=== PATIENT | female | born 2000 | race Caucasian/White ===

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

== ENCOUNTER 2023-12-22 08:58 | Outpatient (REF) | payer OTHER, SELFPAY ==
--- NOTE | ~2023-12-22 | XR_ITS ---
EXAMINATION: XR FOOT, RIGHT CLINICAL INFORMATION: Pain in unspecified foot, attention great toe. COMPARISON: None available. TECHNIQUE: AP, lateral, and oblique views of the right foot. Additional view of the great toe. Radiopaque marker placed by technologist to indicate the area of concern as indicated by the patient along the great toe FINDINGS: Bone mineralization is normal. Joint spaces are preserved. No displaced fracture of the great toe appreciated. Sclerotic focus overlying the base of the fifth metatarsal, possibly representing a bone island. XR/XR foot RT min 3V IMPRESSION: 1. No displaced fracture of the great toe appreciated. 2. Sclerotic focus overlying the base of the fifth metatarsal, possibly representing a bone island. 3. Recommend follow up imaging in 10-14 days if fracture is suspected.
== END 2023-12-22 08:59 | disposition home or self-care (01) ==
LOC: HO.HOSX 08:58
PROVIDERS: Visit Provider Orthopaedic Surgery
DX: M79.671 Pain in right foot (principal)
CPT/HCPCS: 73630

== ENCOUNTER 2023-12-22 12:23 | Outpatient (AMB) | payer OTHER, SELFPAY ==
--- NOTE | 2023-12-22 12:47 | A.OFFVIS_ITS ---
<Statement entered by Manny Andrade MD - 12/25/23 06:49> I saw and evaluated this patient. I completed the assessment and plan in its entirety. The patient visit totaled 25 min, 15 of which I spent directly counseling the patient. I agree with PA assessment and plan. I discussed the risks benefits and alternatives including but not limited to the risk of pain, infection, stiffness, need for further surgery. Intake Visit Reasons: N/P RT great toe smashed approx 01 Intake Note: Sarah a 23 year old female who presents today as a new patient for an evaluation of right great toe, ~11/13/23. HPI HPI N/P RT great toe smashed approx 01: Details: Patient is a 23-year-old female who presents for evaluation of right great toe. Patient reports that, while scuba diving, a diving weight was dropped on her foot pain, but she continued to dive. Patient reports that there is was a significant subungual hematoma in that nail, and that for the past couple of days there has been some purulent discharge from under the nail. Patient also reports increased erythema and edema of the right great toe. Patient reports that her pain has improved significantly since time of injury, and that the subungual hematoma has since spontaneously evacuated. Review of Systems Const All systems reviewed & are unremarkable except as noted in HPI and below Physical Exam Const Other: Patient is alert, oriented, cooperative, and in no acute distress HEENT Head: Yes normocephalic and Yes atraumatic Resp Effort & Inspection: normal respiratory effort and able to speak in complete sentences Cardio Jugular venous distension: no JVD Neuro General: gait normal Cognition (Neuro): normal cognition Extrem Other: On inspection, patient's right great toe is slightly edematous, and erythematous. Right great toenail is noted to be lifted off of the skin, with evacuated subungual hematoma. No discharge noted at this time. Patient tender to palpation of the volar aspect of the right great toe. Patient is able to flex and extend the toe. No antalgic gait noted. Psych Appearance: grossly normal Mental Status: mental status grossly normal Results Reviewed Results Reviewed: X-rays obtained in the office today and independently reviewed by me, Juventino Meyer PA-C, demonstrate nondisplaced fracture of the tip of the distal phalanx of the right great toe. Assessment & Plan Assessment & Plan (1) Fracture of distal phalanx of right great toe: Code(s): S92.421A - Displaced fracture of distal phalanx of right great toe, initial encounter for closed fracture Category: Medical Qualifiers: Encounter type: initial encounter Fracture alignment: nondisplaced Fracture type: open Qualified Code(s): S92.424B - Nondisplaced fracture of distal phalanx of right great toe, initial encounter for open fracture Plan 1. Distal phalanx fracture at the tuft, right great toe Due to bleeding and purulent drainage in the setting of a distal phalanx great toe fracture, infection of an open fracture must be considered. Patient is walking well, and is wearing normal shoes at this time Patient prescribed a 10 day course of Augmentin to treat potential infection. Due to mild symptom load, postop shoe or walking boot not necessary in this patient. Patient can follow-up in clinic with me in 1 month for repeat evaluation of fracture site, sooner with any acute concerns. Addendum on 12/23/2023: After discussion with Dr. Andrade, who was decided that the patient has had proceed with right great toe I and D, nail bed removal, and culture. Patient is amenable to this plan Orders: Orders XR foot RT min 3V 12/22/23 M79.673 - Pain in unspecified foot Medications: New amoxicillin-pot clavulanate 875-125 mg 1 tab PO BID 20 tabs 0RF 10 days Coding Level of Care Code New Pt Level 3 (92190) Diagnoses Open nondisplaced fracture of distal phalanx of right great toe, initial encounter S92.424B Encounter type: initial encounter Fracture alignment: nondisplaced Fracture type: open
== END 2023-12-22 15:46 | disposition home or self-care (01) ==
PROVIDERS: Visit Provider Orthopaedic Surgery
DX: S92.424B Nondisplaced fracture of distal phalanx of right great toe, initial encounter for open fracture (principal)
CPT/HCPCS: 99204

== ENCOUNTER 2023-12-23 13:49 | Outpatient (REF) | payer OTHER, SELFPAY ==
[2023-12-23 13:58] VITALS: BP 118/74; PULSE 74; RESP 18; TEMP 36.7; O2SAT 99; BMI 24.8
--- NOTE | 2024-02-11 08:46 | P.OP_ITS ---
Operative Note Operative Note Date of Service: 12/23/23 Narrative: Date of Service: 12/23/23 Pre-op diagnosis: Right great toe subungal infected hematoma Post-op diagnosis: same Procedure: Nail removal right great toe Surgeon: Manny Andrade MD Anesthesia: local Was an Education Adviser used for this Procedure?: No Estimated blood loss (mL): 1 Pathology: other Condition: stable Disposition: PACU Patient was brought to the procedure room and she was seated on the operative table. She was prepped and draped in standard sterile fashion and a time out was called to identify proper site, proper procedure. IV antibiotics were held. I began by injecting a combination of 0.5% plain bupivacaine and 1% lidocaine around the distal and proximal phalanx of the great toe. Plantar and dorsal injections were performed circumferentially until she was subjectively anesthetized over the distal phalanx and the nail bed. Once appropriate anesthesia was achieved I used a Whitethorn elevator to gently undermine the nail. This was done so methodically until I was able to remove the nail completely w ithout difficulty. The germinal matrix was not damaged. There was the expression of purulence from a small hole in the nail bed. This was cultured. I then irrigated copiously and wrapped the toe circumferentially and sterile dressing and padding. There were no complications and the patient was alert awake and alert throughout the entire procedure.
== END 2023-12-23 13:50 | disposition home or self-care (01) ==
LOC: HO.MS 13:49
PROVIDERS: Visit Provider Orthopaedic Surgery
PROC: (CPT 11750; principal; 2023-12-23 14:00)
DX: L03.031 Cellulitis of right toe (principal); S90.111A Contusion of right great toe without damage to nail, initial encounter; X58.XXXA Exposure to other specified factors, initial encounter; Y93.9 Activity, unspecified; Y92.9 Unspecified place or not applicable; Y99.9 Unspecified external cause status
CPT/HCPCS: 11750; 87070; 87077; 87147; 87186; 87205; J2795

== ENCOUNTER → 2023-12-23 13:49 | Outpatient (BNV) | payer OTHER, SELFPAY | PROVIDERS: Visit Provider Orthopaedic Surgery | DX: L60.3 Nail dystrophy (principal) | CPT/HCPCS: 11750 ==

== ENCOUNTER 2024-01-05 11:16 | Outpatient (AMB) | payer OTHER, SELFPAY ==
[2024-01-05 11:56] VITALS: BP 122/66; PULSE 70; TEMP 36.6; O2SAT 98
--- NOTE | 2024-01-05 11:56 | AM.OFFWIN_ITS ---
Intake Vital Signs 01/05/24 11:56 Height 5 ft 3 in BP 122/66 Blood Pressure Location Lt brachial Position Sitting Pulse 70 Pulse Source Pulse Oximeter Temp 97.9 F Temp Source Oral Pulse Oximetry (%) 98 Intake Visit Reasons: EP headaches, lump on back of head Intake Note: patient is here for headaches, lump on back of head Patient Tobacco Use Status: Never used Tobacco Allergies No Known Allergies Allergy (Verified 01/05/24 11:56) Do you need a note to return to daycare/school/sports/work: Yes HPI HPI Comments History of Present Illness Details This is a 23-year-old female with a past medical history of Lyme disease two years ago and a recent foot infection presenting for evaluation of a painful lesion on the back of her scalp that has been present for the past 5 days. Patient comes to urgent care today because she noted lymph nodes on the back of her neck this morning and also had headache. Patient states she was taking Keflex for the past 10 days for her foot infection on her last dose was last night. The antibiotic therapy has now been completed. Patient denies having any visual changes, neck pain, fevers, chills or trauma to her head. Patient did not take any medication for treatment of her headache and states that her headache has resolved at this time. [facility] Social History Patient Tobacco Use Status: Never used Tobacco Review of Systems Const All systems reviewed & are unremarkable except as noted in HPI and below Denies body aches, Denies chills, Denies fatigue, Denies fever(s) and Reports headache(s) Eyes Reports no additional complaints, Denies blurry vision, Denies change in vision and Denies loss of vision ENT Reports no additional complaints, Denies dizziness and Reports headache(s) Card Reports as per HPI and Denies syncope Resp Reports no additional complaints Skin/Breast Details: bump on back of head Reports system reviewed and no additional complaints, except as documented Neuro Reports no additional complaints, Denies dizziness, Denies syncope, Reports headache(s), Denies loss of vision and Denies paresthesias Psych Reports no additional complaints Endo Denies fatigue Valeriano/Lymph Reports no additional complaints Aller/Immun Reports no additional complaints Physical Exam Vital Signs: Last Vital Signs Temp 97.9 F 01/05/24 11:56 Pulse 70 01/05/24 11:56 BP 122/66 01/05/24 11:56 Pulse Ox 98 01/05/24 11:56 Const General: cooperative, healthy appearing, comfortable, no acute distress, well developed, alert and awake Nutritional Appearance: average body habitus Orientation/consciousness: patient oriented x3 Limitations: no limitations HEENT Other: no erythema, edema or cutaneous findings on the posterior scalp at the site of pain described by patient Head: Yes normal to inspection, No hematoma, No occipital foramen tenderness, No scalp lesion, Yes scalp tenderness (right posterior parietal region) and No Temporal artery tenderness present Ears: hearing grossly normal bilaterally, external ears normal, TM's normal bilaterally and EAC's normal General nose exam: Normal external nose present Face and sinus: Yes normal facial exam Mouth: Normal oral and palatal mucosa present Eyes General: appearance normal, both eyes and all related structures Visual Martínez: normal visual martínez by confrontation Alignment and Position: alignment normal Periorbital: periorbital findings normal Eyelids: Yes eyelids normal Conjunctivae: conjunctivae normal Sclerae: sclerae normal Corneas: corneas normal Pupils: Equal, round and reactive pupils present EOM: EOMs intact bilaterally Direct Ophthalmoscopy: normal light reflex and no photophobia Neck Neck: Yes no meningeal signs Lymphatic: lymphadenopathy right posterior cervical Neuro General: patient oriented x3, moves all extremities, Normal light touch and pain sensation, no meningeal signs, no focal motor deficits and CN's II-XI intact bilaterally Cranial nerves: Yes CN's II-XII intact bilaterally and Yes Equal, round and reactive pupils present Psych Appearance: grossly normal Mental Status: mental status grossly normal Speech and movement: Normal speech and movement present Thought content: Normal thought content present Insight: Good insight present (Psych) Judgement: Good judgement present (Psych) Assessment & Plan Assessment & Plan (1) Head pain: Code(s): R51.9 - Headache, unspecified Qualifiers: Headache chronicity pattern: unspecified pattern Headache type: unspec ified Intractability: not intractable Qualified Code(s): R51.9 - Headache, unspecified Plan: Tylenol as needed if pain recurs. (2) Posterior cervical adenopathy: Comment: Given this patient took her last antibiotic therapy last night, laboratories will be relevant at this time. Patient is afebrile, neurologically intact and in no acute distress. There is no evidence of an evolving abscess on the posterior scalp. Code(s): R59.0 - Localized enlarged lymph nodes Plan: Tylenol as needed for discomfort; follow up at urgent care or emergency department for any worsening symptoms following the completion of her 10 days of antibiotics. Coding Level of Care Code Est Pt Level 3 (55558) Diagnoses Nonintractable headache, unspecified chronicity pattern, unspecified headache type R51.9 Headache chronicity pattern: unspecified pattern Headache type: unspecified Intractability: not intractable Posterior cervical adenopathy R59.0 Time Spent (min) 20
== END 2024-01-05 12:54 | disposition home or self-care (01) ==
PROVIDERS: Visit Provider Physician Assistant
DX: R51.9 Headache, unspecified (principal); R59.0 Localized enlarged lymph nodes
CPT/HCPCS: 99213

== ENCOUNTER 2024-01-08 13:00 | Outpatient (AMB) | payer OTHER, SELFPAY ==
--- NOTE | 2024-01-08 13:01 | A.OFFPC_ITS ---
Vital Signs 01/08/24 13:03 Height 5 ft 3 in Weight 141 lb BMI 25.0 BP 110/64 Blood Pressure Location Rt brachial Position Sitting Pulse 99 Pulse Source Pulse Oximeter Pulse Oximetry (%) 99 Oxygen Delivery Method Room Air Intake Visit Reasons: F/u Walk in visit /Est Care (ok per [place]) Allergies No Known Allergies Allergy (Verified 01/08/24 13:03) Tobacco use date assessed: 01/08/24 Dental Screening Dental Screen Date: 01/08/24 Did you have a dental visit in the last 12 months?: Yes Did you have a dental problem in the last 6 months where you did not have access to dental care?: No Was dental information given to patient?: Patient has dentist HPI F/u Walk in visit /Est Care (ok per AK) HPI Details Patient is 23-year-old female came in today for establish care visit Patient have a history of hereditary spherocytosis She offer no complaints Want to have education about what to eat what not to eat, we will be booking her appointment with the dietitian Lab order placed to be done fasting Patient would like to have OBGYN appointment, referral placed [facility] Social History Patient Tobacco Use Status: Never used Tobacco Current occupational status: employed Cognitive needs: No Hearing needs: No Vision needs: No Questionnaire PHQ-9 Over the last 2 weeks, how often have you been bothered by any of the following problems? 56804 - PHQ-9 Billing: Patient declined-do not bill Source: Developed by Drs. Vinny Roberto, Africa Johnson, Tomás Perez and colleagues, with an educational anu from [employer]. Review of Systems Const Denies chills, Denies fever(s) and Denies headache(s) Eyes Denies blurry vision ENT Denies headache(s), Denies nasal discharge, Denies nasal obstruction, Denies odynophagia and Denies sinus pain Card Denies chest pain at rest and Denies chest pain with activity Resp Denies cough and Denies hemoptysis GI Denies diarrhea, Denies odynophagia, Denies vomiting and Denies hematemesis Reports as per HPI Musc Denies abnormal gait Skin/Breast Reports as per HPI Neuro Denies Neuro-related abnormal movements, Denies Abnormal speech present, Denies abnormal gait, Denies headache(s) and Denies Sensory deficit (Neuro) Psych Denies mood swings and Denies paranoia Endo Reports as per HPI Valeriano/Lymph Reports as per HPI Aller/Immun Reports as per HPI Physical exam (Primary Care) Vital Signs: Last Vital Signs Pulse 99 01/08/24 13:03 BP 110/64 01/08/24 13:03 Pulse Ox 99 01/08/24 13:03 Oxygen Delivery Method Room Air 01/08/24 13:03 BMI result Body Mass Index 25.0 Tobacco/Smoking Status: Tobacco use Status Tobacco use date assessed 01/08/24 01/08/24 13:05 Patient Tobacco Use Status Never used Tobacco 01/08/24 13:03 Const General: cooperative, comfortable and no acute distress Orientation/consciousness: patient oriented x3 HENMT Head: Yes normocephalic and Yes atraumatic Eyes General: appearance normal, both eyes and all related structures Pupils: Equal, round and reactive pupils present EOM: EOMs intact bilaterally Neck Neck: Yes supple and No lymphadenopathy Thyroid: Thyroid normal Lymphatic: no lymphadenopathy noted Resp Effort & Inspection: normal respiratory effort and able to speak in complete sentences Auscultation: clear to auscultation bilaterally Cardio Heart sounds: S1 normal heart sound present and S2 normal heart sound present GI Palpation (GI): Soft to palpation and nontender Auscultation: normal bowel sounds General: Yes no CVA tenderness Back/Spine/Pelvis Back: no CVA tenderness Skin General skin exam: elasticity normal and turgor normal Neuro General: patient oriented x3 and gait normal Cranial nerves: Yes Equal, round and reactive pupils present Speech: No Abnormal speech present Sensory Exam: No Sensory deficit (Neuro) Coordination: tandem gait normal and Romberg test negative Extrem General: Yes normal exam except as noted and No edema Assessment and Plan Assessment & Plan (1) Encounter for general adult medical examination with abnormal findings: Code(s): Z00.01 - Encounter for general adult medical examination with abnormal findings (2) Hereditary spherocytosis: Code(s): D58.0 - Hereditary spherocytosis Plan Physical exam appointment I see that he has gained some weight since October We talked about the weight today his ideal body weight is around 170 or below He is trying to control his diet and avoid eating sweets No medication PCP office Blood pressure medication management through Cardiology office Blood pressure is slightly elevated today Colonoscopy has not done yet, patient says that he has seen the doctor last year but did not go for colonoscopy as he can not do it any other day but Thursday He is trying to schedule it on Thursday Labs were done recently reviewed with the patient Patient is overweight need to lose some weight Offer no complaints today Orders: Orders TSH reflex Free T4 Today D58.0 - Hereditary spherocytosis, Z00.01 - Encounter for general adult medical examination with abnormal findings Vitamin D 25-OH (D2 and D3) Today D58.0 - Hereditary spherocytosis, Z00.01 - Encounter for general adult medical examination with abnormal findings Complete Blood Count Auto Diff Today D58.0 - Hereditary spherocytosis, Z00.01 - Encounter for general adult medical examination with abnormal findings Comprehensive Clare. Panel Fast Today D58.0 - Hereditary spherocytosis, Z00.01 - Encounter for general adult medical examination with abnormal findings Lipid Panel Today D58.0 - Hereditary spherocytosis, Z00.01 - Encounter for general adult medical examination with abnormal findings Referrals PIPE ORGAN INSTALLER Referral Z01.419 - Encounter for gynecological examination (general) (routine) without abnormal findings Coding Level of Care Code New Pt Level 3 (19633) New Pt Prev Care 18-39yr(81525 Diagnoses Encounter for general adult medical examination with abnormal findings Z00.01 Hereditary spherocytosis D58.0
[2024-01-08 13:03] VITALS: BP 110/64; PULSE 99; O2SAT 99; BMI 25.0
== END 2024-01-08 13:44 | disposition home or self-care (01) ==
PROVIDERS: Visit Provider Internal Medicine
DX: Z00.00 Encounter for general adult medical examination without abnormal findings (principal); D58.0 Hereditary spherocytosis
CPT/HCPCS: 99385

== ENCOUNTER 2024-01-27 10:50 | Outpatient (REF) | payer OTHER, SELFPAY ==
[2024-01-27 13:23] LABS: MANUAL DIFF FLAG NO
[2024-01-27 13:33] LABS: Basophils Absolute Auto 0.1 X10*3/uL (0.0-0.2); Basophils Percent Auto 1.3 % (0-2); Eosinophils Percent Auto 0.4 % (0-4); Hematocrit 36.1 % (37.0-47.0); Hemoglobin 13.2 g/dl (12.0-16.0); Imm Gran Pct Auto 1.3 % (0.0-0.4); Lymphocytes Absolute Auto 1.4 X10*3/uL (1.2-4.9); Lymphocytes Percent Auto 17.5 % (20-40); Mean Corpuscular HGB Conc 36.6 g/dl (31.0-35.0); Mean Corpuscular Hemoglobin 32.9 pg (27.0-33.0); Mean Platelet Volume 11.4 fL (9.4-12.3); Monocytes Absolute Auto 0.5 X10*3/uL (0.1-1.2); Monocytes Percent Auto 6.6 % (2-11); Neutrophils Absolute Auto 5.8 x10*3/uL (2.0-8.3); Neutrophils Percent Auto 72.9 % (45-73); Platelet Count 217 X10*3/uL (160-400); Red Blood Count 4.01 X10*6/uL (4.20-5.50); Red Cell Distribution Width 16.5 % (11.0-16.0)
[2024-01-27 14:09] LABS: Alanine Aminotransferase 13 U/L (0-31); Albumin Level 4.7 g/dL (3.5-5.0); Alkaline Phosphatase 44 U/L (39-117); Anion Gap 12 (12-20); Aspartate Amino Transferase 16 U/L (5-31); Bilirubin Total 3.1 mg/dL (0.0-1.0); Blood Urea Nitrogen 8 mg/dL (9-16); Calcium 9.7 mg/dL (8.4-10.2); Carbon Dioxide 22 mmol/L (22-29); Chloride 109 mmol/L (96-108); Cholesterol 103 mg/dL (<200); Estimated Glomerular Filt Rate > 60; Glucose Fasting 85 mg/dL (60-99); HDL Cholesterol 41 mg/dL (>40); LDL Cholesterol Calculated 51 mg/dL (<100); Potassium 3.9 mmol/L (3.3-5.1); Sodium 139 mmol/L (135-145); Total Protein 6.9 g/dL (6.5-8.0); Triglycerides 57 mg/dL (<150)
[2024-01-27 14:25] LABS: TSH reflex Free T4 0.54 uIU/mL (0.32-4.0)
[2024-01-31 13:23] LABS: Vitamin D 25-OH, D2 <4 ng/mL; Vitamin D 25-OH, D3 29 ng/mL; Vitamin D 25-OH, Total 29 ng/mL (30-100)
== END 2024-01-27 10:51 | disposition home or self-care (01) ==
LOC: HO.HMGCLDS 10:50
PROVIDERS: PCP Internal Medicine; Visit Provider Internal Medicine
DX: Z00.01 Encounter for general adult medical examination with abnormal findings (principal); D58.0 Hereditary spherocytosis
CPT/HCPCS: 36415; 80053; 80061; 82306; 84443; 85025

== ENCOUNTER 2024-02-11 10:03 | Outpatient (REF) | payer OTHER, SELFPAY ==
[2024-02-11 13:50] LABS: Alanine Aminotransferase 12 U/L (0-31); Albumin Level 4.8 g/dL (3.5-5.0); Alkaline Phosphatase 56 U/L (39-117); Aspartate Amino Transferase 16 U/L (5-31); Bilirubin Direct 0.3 mg/dL (0.0-0.5); Bilirubin Total 4.2 mg/dL (0.0-1.0)
== END 2024-02-11 10:04 | disposition home or self-care (01) ==
LOC: HO.HMGCLDS 10:03
PROVIDERS: PCP Internal Medicine; Visit Provider Internal Medicine
DX: R79.89 Other specified abnormal findings of blood chemistry (principal)
CPT/HCPCS: 36415; 80076

== ENCOUNTER 2024-03-02 12:58 | Outpatient (AMB) | payer OTHER, SELFPAY ==
--- NOTE | 2024-03-02 13:09 | A.OFFVIS_ITS ---
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 She goes to [employer] she is a senior. Her mother moved to [place] so she came to college out here [place]. She is a senior she has primary care provider who is a women in [place].. She is here for her 1st Pap smear she does believe she got the Gardasil vaccine. She is not sexually active and has no plans to be and never has been. [facility] Social History Patient Tobacco Use Status: Never used Tobacco Current occupational status: employed Cognitive needs: No Hearing needs: No Vision needs: No Female Reproductive History Menstrual Age of Menarche: 15 Duration of menses: 3-5 days Date of last menstrual period: 02/21/24 control method: none Total pregnancies: 0 Physical Exam Vital Signs: Last Vital Signs BP 100/60 03/02/24 13:12 BMI result Body Mass Index 24.8 Const General: healthy appearing, comfortable, no acute distress, well developed and alert Nutritional Appearance: average body habitus Orientation/consciousness: patient oriented x3 Limitations: no limitations HEENT Head: Yes normocephalic Neck Neck: Yes normal visual inspection Thyroid: Thyroid normal Chest Chest palpation & inspection: normal inspection of the chest Breast/axilla inspection: normal inspection of the breasts and normal inspection of the axillae Breast/axilla palpation: normal palpation of the breasts and normal palpation of the axillae Resp Effort & Inspection: normal respiratory effort GI Inspection: Yes normal to inspection, No Abdominal wall edema and No distended Palpation (GI): Soft to palpation and nontender Other: External exam within normal limits patient is virginal. Vulva pink healthy appearing normal appearing clear and white discharge. Vagina pink healthy rugated normal-appearing clear and white discharge cervix nulliparous pink clear with clear approaching fertile mucus with scant white discharge around cervix mobile nontender. Pelvic bimanual exam is somewhat limited secondary to patient's virginal status but uterus feels not enlarged midposition mobile nontender adnexa nontender not enlarged good tone with Kegel. General: Yes bladder normal to palpation External Female Exam: normal external appearance and normal appearance of the urethra Speculum Exam - Vagina: normal appearance of the vagina, normal palpation and normal vaginal discharge Speculum Exam - Cervix: normal appearance of the cervix, normal palpation and nontender Bimanual exam- vagina & uterus: normal bimanual exam, normal palpation, uterine size normal, bladder normal to palpation, consistency normal, normal palpation, uterine mobility normal, uterine shape normal, No Cervical tenderness present, non-tender and no cervical motion tenderness Bimanual Exam- Adnexa, other: normal adnexae, no masses, normal and No adnexal tenderness Neuro General: patient oriented x3 Assessment & Plan Assessment & Plan (1) Encounter for routine gynecological examination: Code(s): Z01.419 - Encounter for gynecological examination (general) (routine) without abnormal findings Category: Medical (2) Well woman exam with routine gynecological exam: Code(s): Z01.419 - Encounter for gynecological examination (general) (routine) without abnormal findings Category: Medical (3) Cervical cancer screening: Comment: First pelvic and 1st Pap done today. Patient believes she had the Gardasil vaccine. Code(s): Z12.4 - Encounter for screening for malignant neoplasm of cervix Category: Medical (4) Encounter for sexual health education: Code(s): Z70.8 - Other sex counseling Category: Medical Plan -----Discussed in this visit the following: healthy balanced diet, regular and consistent exercise, getting recommended health screens, doing the best she can for her particular health concerns, kegel exercises, pap smear screening and followup recommendations, mammography screening and SBE, normal changes in cycles in her life stage--- . Teaching done about Pap smears teaching done about her 1st electric organ assembler and checker exam and anatomy and cycles teaching done about options for control and also timing of different exams and when she should return and while we say return for annual electric organ assembler and checker exams if she has not yet become sexually active and is not having any difficulty at all with her cycles and is not in need of any control method she should know that her next Pap smear would be due in 3 years if this 1 is normal. So long as she is being seen annually by some provider that would suffice and she does have a primary health care provider. We will see her in 1 year she did not have any other questions. She runs for exercise and started going to the gym this summer and she skis and has the goal of beating her father down the slopes. Coding Level of Care Code New Pt Prev Care 18-39yr(59759 Diagnoses Encounter for routine gynecological examination Z01.419 Well woman exam with routine gynecological exam Z01.419 Cervical cancer screening Z12.4 Encounter for sexual health education Z70.8
[2024-03-02 13:12] VITALS: BP 100/60; BMI 24.8
== END 2024-03-02 13:45 | disposition home or self-care (01) ==
PROVIDERS: Visit Provider Advanced Practice Midwife
DX: Z01.419 Encounter for gynecological examination (general) (routine) without abnormal findings (principal); Z12.4 Encounter for screening for malignant neoplasm of cervix; Z70.8 Other sex counseling
CPT/HCPCS: 99385

== ENCOUNTER 2024-03-02 12:58 | Outpatient (REF) | payer OTHER, SELFPAY | END 2024-03-02 12:59 | disposition home or self-care (01) | LOC: HO.HHCLNP 12:58 | PROVIDERS: Visit Provider Advanced Practice Midwife | DX: Z01.419 Encounter for gynecological examination (general) (routine) without abnormal findings (principal) | CPT/HCPCS: 36415; 87625; 88175 ==